=== PATIENT | female | born 1990 | race Caucasian/White ===

== ENCOUNTER 2019-08-18 15:43 | Emergency (ER) | payer SELFPAY ==
[2019-08-18 15:52] VITALS: BP 130/73; PULSE 109; RESP 18; TEMP 36.8; O2SAT 98; BMI 26.9
--- NOTE | 2019-08-18 16:12 | USR_ITS ---
PROCEDURE INFORMATION: Exam: US Pelvis Complete, Transabdominal Exam date and time: 08/18/2019 5:14 PM Age: 29 years old Clinical indication: Pelvic pain; Patient HX: Paragard iud inserted; Additional info: Pain/abnormal bleeding TECHNIQUE: Imaging protocol: Real-time transabdominal pelvic ultrasound with image documentation. Complete exam. COMPARISON: [place] [facility]etal[facility]/[place] [id number] 05/24/2016 3:35 PM FINDINGS: Uterus/cervix: The uterus measures 8.9 x 5.8 x 4.9 cm. IUD in standard position within the endometrial cavity. Endometrial thickness 7 mm. Right adnexa: The right ovary measures 6.0 x 4.7 x 4.1 cm with normal blood flow and a 5.2 cm simple cyst. Left adnexa: The left ovary measures 2.9 x 2.4 x 3.5 cm with normal flow and follicles. Free fluid: No free fluid. Bladder: Normal. US/US pelvic with transvaginal IMPRESSION: 1. 5.2 cm simple cyst in the right ovary. Recommend yearly follow-up. 2. IUD in the standard position.
--- NOTE | 2019-08-18 16:13 | W.ED.ABDPA2 ---
Documented by User: COLIN Sarmiento 08/19/19 07:45 HPI - Abdominal Pain General: Chief Complaint: Abdominal Pain Stated Complaint: ABD PAIN, SPOTTING Time Seen by Provider: 08/18/19 15:58 Source: patient Mode of arrival: ambulatory Limitations: no limitations History of Present Illness: HPI narrative: Patient is a 29-year-old female who presents to ED today with complaints of lower pelvic pain and abnormal bleeding; patient states her periods are normally regular but states she began bleeding 10 days early; she complains of pelvic cramping over the past week; she reports no chance of as she has a Paraguard IUD; she also has a complaint of severe fatigue and intermittent nausea; denies vaginal discharge, odor, new sexual partners, concern for STDs Onset (ago): day(s) Location: Pelvis Quality: cramping Radiation: none Migration to: no migration Exacerbating factors: nothing Relieving factors: nothing Associated Symptoms: Reports nausea; Denies chills, constipation, diarrhea, dysuria, fever(s), hematuria, hematemesis and vomiting Review of Systems Const: Reports: fatigue and daytime sleepiness; Denies: fever, chills, body aches, change in appetite or night sweats ENMT: Denies: painful swallowing Card: Denies: chest pain, palpitations, edema, lightheadedness or pre-syncope Resp: Denies: shortness of breath, productive cough or chest congestion GI: Reports: nausea; Denies: abdominal pain, vomiting, vomiting blood, difficulty swallowing, diarrhea or constipation : Reports: vaginal bleeding and pelvic pain; Denies: flank pain, difficulty urinating, painful urination, urinary frequency, urinary urgency, urinary hesitancy, blood in urine or vaginal odor Musc: Denies: neck pain, back pain, extremity pain, extremity swelling or joint pain Skin/Breast: Denies: rash PFSH ED PFSH: Statuses (acute, chronic, etc) shown below reflect problem list status as previously entered and may not be historically accurate Social History Smoking and tobacco status: never smoked Physical Exam Const: COMMON NORMALS: no apparent distress, average body habitus, oriented x3, no limitations, healthy appearing, alert and well nourished Resp: COMMON NORMALS: normal respiratory effort and clear to auscultation bilaterally AUSCULTATION: clear to auscultation bilaterally Cardio: COMMON NORMALS: regular rate and regular rhythm RATE: regular rate RHYTHM: regular rhythm GI: COMMON NORMALS: normal to inspection, nondistended, normoactive bowel sounds, soft to palpation, no hepatosplenomegaly and no masses PALPATION: Yes soft and Yes no hepatosplenomegaly OTHER: TTP across lower abdomen/pelvis : COMMON NORMALS: Yes no CVA tenderness BLADDER/KIDNEY EXAM: Yes no CVA tenderness Back/Pelvis: COMMON NORMALS: no CVA tenderness Neuro: COMMON NORMALS: oriented x3 SENSORIUM/ORIENTATION: Yes alert Skin: COMMON NORMALS: no rashes or lesions noted GENERAL SKIN EXAM: no rashes or lesions noted Course Vital Signs: Vital signs: Vital Signs Temperature 98.2 F 08/18/19 15:52 Pulse Rate 83 08/18/19 18:27 Respiratory Rate 17 08/18/19 18:27 Blood Pressure 162/62 08/18/19 18:27 Pulse Oximetry 94 08/18/19 18:27 MDM - Abdominal Pain Lab Data: Labs: Lab Results 08/18/19 08/18/19 08/18/19 Range/Units 16:06 16:06 16:06 WBC 7.9 (4.0-10.0) 10^3/ uL RBC 4.67 (4.1-5.3) 10^6/u L Hgb 13.0 (11.5-15.3) g/dL Hct 38.9 (37.0-47.0) % MCV 83.3 (81-99) fL MCH 27.8 L (28.0-34.0) pg MCHC 33.4 (30.0-36.0) g/dL RDW 12.1 (12.1-15.1) % Plt Count 377 (130-400) 10^3/c mm MPV 10.2 (7.4-10.4) fL Neut % (Auto) 64.0 % Lymph % (Auto) 27.1 % [place] % (Auto) 6.2 % Eos % (Auto) 1.9 % Baso % (Auto) 0.4 % Neut # (Auto) 5.1 (1.8-7.7) 10^3/u L Lymph # (Auto) 2.1 (0.8-4.8) 10^3/u L [place] # (Auto) 0.5 (0.2-0.9) 10^3/u L Eos # (Auto) 0.2 (0.0-0.8) 10^3/u L Baso # (Auto) 0.0 (0.0-0.1) 10^3/u L Nucleated RBC % (a uto) 0 % Nucleated RBCs # 0.0 /100WBC Sodium 138 (136-145) mmol/L Potassium 3.7 (3.5-5.1) mmol/L Chloride 101 (98-107) mmol/L Carbon Dioxide 21 L (22-29) mmol/L Anion Gap 19.7 H (5-19) BUN 12 (6-20) mg/dL Creatinine 0.5 (0.5-0.9) mg/dL GFR Calculation 148.0 H (90-130) mL/min Glucose 100 (74-109) mg/dL Calcium 9.7 (8.5-10.5) mg/dL Total Bilirubin 0.5 (0.15-1.2) mg/dL AST 17 (0-32) U/L ALT 14 (0-33) U/L Alkaline Phosphata se 75 (35-105) IU/L Total Protein 7.4 (6.6-8.7) g/dL Albumin 4.7 (3.5-5.2) g/dL Globulin 2.7 (1.3-4.6) g/dL TSH 0.01 L (0.27-4.20) uIU/ mL Free T4 (0.82-1.77) ng/d L Ser , Edwige i-Qnt 0.50 mIU/mL Urine Color (Yellow) Urine Appearance (CLEAR) Urine pH (5-7) Ur Specific Gravit y (1.005-1.030) Urine Protein (Negative) Urine Glucose (UA) (Normal) Urine Ketones (Negative) Urine Occult Blood (Negative) Urine Nitrate (Negative) Urine Bilirubin (NEGATIVE) Urine Urobilinogen (Negative) mg/dL Ur Leukocyte Abigail ase (Negative) Urine RBC (0-2) /hpf Urine WBC (0-5) /hpf Ur Squamous Epith Cells (0-5) Urine Bacteria (NONE) Urine Mucus 08/18/19 08/18/19 Range/Units 16:06 16:52 WBC (4.0-10.0) 10^3/ uL RBC (4.1-5.3) 10^6/u L Hgb (11.5-15.3) g/dL Hct (37.0-47.0) % MCV (81-99) fL MCH (28.0-34.0) pg MCHC (30.0-36.0) g/dL RDW (12.1-15.1) % Plt Count (130-400) 10^3/c mm MPV (7.4-10.4) fL Neut % (Auto) % Lymph % (Auto) % [place] % (Auto) % Eos % (Auto) % Baso % (Auto) % Neut # (Auto) (1.8-7.7) 10^3/u L Lymph # (Auto) (0.8-4.8) 10^3/u L [place] # (Auto) (0.2-0.9) 10^3/u L Eos # (Auto) (0.0-0.8) 10^3/u L Baso # (Auto) (0.0-0.1) 10^3/u L Nucleated RBC % (a uto) % Nucleated RBCs # /100WBC Sodium (136-145) mmol/L Potassium (3.5-5.1) mmol/L Chloride (98-107) mmol/L Carbon Dioxide (22-29) mmol/L Anion Gap (5-19) BUN (6-20) mg/dL Creatinine (0.5-0.9) mg/dL GFR Calculation (90-130) mL/min Glucose (74-109) mg/dL Calcium (8.5-10.5) mg/dL Total Bilirubin (0.15-1.2) mg/dL AST (0-32) U/L ALT (0-33) U/L Alkaline Phosphata se (35-105) IU/L Total Protein (6.6-8.7) g/dL Albumin (3.5-5.2) g/dL Globulin (1.3-4.6) g/dL TSH (0.27-4.20) uIU/ mL Free T4 2.87 H (0.82-1.77) ng/d L Ser , Edwige i-Qnt mIU/mL Urine Color Straw (Yellow) Urine Appearance Clear (CLEAR) Urine pH 5 (5-7) Ur Specific Gravit y 1.010 (1.005-1.030) Urine Protein Neg (Negative) Urine Glucose (UA) Norm (Normal) Urine Ketones Negative (Negative) Urine Occult Blood 3+ H (Negative) Urine Nitrate Negative (Negative) Urine Bilirubin Neg (NEGATIVE) Urine Urobilinogen Norm (Negative) mg/dL Ur Leukocyte Abigail ase Negative (Negative) Urine RBC 5-10 H (0-2) /hpf Urine WBC Rare (0-5) /hpf Ur Squamous Epith Cells 10-15 H (0-5) Urine Bacteria Trace (NONE) Urine Mucus 1+ Discharge Plan Discharge Patient Disposition: Home, Self-Care Clinical Impression: Ovarian cyst Qualifiers: Laterality: right Qualified Code(s): N83.201 - Unspecified ovarian cyst, right side Condition: Stable Prescriptions: New hydrocodone-acetaminophen 5-325 mg tablet 1 tab PO Q8H PRN (Reason: pain) Qty: 10 RF: 0 naproxen 500 mg tablet 500 mg PO Q12H PRN (Reason: pain) Qty: 20 RF: 0 Discharge Orders: Discharge Order (Routine); Ordered 08/18/19 Ordered By: Sai Pollock Referrals: Srikanth Brice DO [Family Provider] - Discharge Diet: Usual diet Discharge Activity: Increase activity as tolerated Patient Instructions: Ovarian Cyst (ED) Activity Restrictions/Additional Instructions: Drink plenty of water with medications Activity as tolerated Healthy diet and exercise Use medications as directed Follow-up with primary care for further management Case management will contact you regarding referral to [facility] as needed for further assistance Discharge Date/Time: 08/18/19 18:27 Coding Level of Care Code ED Delivery Truck Driver for Chg Fwd Exam Problem Focused Documented by User: MEREDITH Mendez 08/18/19 18:12 HPI - Abdominal Pain General: Chief Complaint: Abdominal Pain Stated Complaint: ABD PAIN, SPOTTING Time Seen by Provider: 08/18/19 15:58 PFSH ED PFSH: Statuses (acute, chronic, etc) shown below reflect problem list status as previously entered and may not be historically accurate Social History Smoking and tobacco status: never smoked Course ED course: received patient from Denise Mckenzie PA-C, awaiting US results. [email or web address] Vital Signs: Vital signs: Vital Signs Temperature 98.2 F 08/18/19 15:52 Pulse Rate 83 08/18/19 18:27 Respiratory Rate 17 08/18/19 18:27 Blood Pressure 162/62 08/18/19 18:27 Pulse Oximetry 94 08/18/19 18:27 MDM - Abdominal Pain MDM Narrative: Medical decision making narrative: Patient comes in today with complaints of irregular periods and right lower abdominal pain. Patient has IUD. Patient has no change in partners. Patient appears well. Patient appears in moderate pain. Exam noted some lower right quadrant abdominal tenderness. Differential diagnosis included displaced IUD, PID, ovarian cyst, appendicitis, gastroenteritis, malingering. Laboratory values noted decrease of the TSH at 0.1 with the remainder of the labs being normal or insignificant. Urinalysis had some blood but no white blood cells or significant skin cells. Ultrasound noted a right ovarian cyst with recommendations for follow-up. Reviewed exam with patient with recommendations for follow-up with primary care or SPANISH INTERPRETER/TRANSLATOR of choice. Patient reports understanding and agreed to plan. Patient was treated for pain with hydrocodone and recommended to use naproxen routinely otherwise for her pain and discomfort. Lab Data: Labs: Lab Results 08/18/19 08/18/19 08/18/19 Range/Units 16:06 16:06 16:06 WBC 7.9 (4.0-10.0) 10^3/ uL RBC 4.67 (4.1-5.3) 10^6/u L Hgb 13.0 (11.5-15.3) g/dL Hct 38.9 (37.0-47.0) % MCV 83.3 (81-99) fL MCH 27.8 L (28.0-34.0) pg MCHC 33.4 (30.0-36.0) g/dL RDW 12.1 (12.1-15.1) % Plt Count 377 (130-400) 10^3/c mm MPV 10.2 (7.4-10.4) fL Neut % (Auto) 64.0 % Lymph % (Auto) 27.1 % [place] % (Auto) 6.2 % Eos % (Auto) 1.9 % Baso % (Auto) 0.4 % Neut # (Auto) 5.1 (1.8-7.7) 10^3/u L Lymph # (Auto) 2.1 (0.8-4.8) 10^3/u L [place] # (Auto) 0.5 (0.2-0.9) 10^3/u L Eos # (Auto) 0.2 (0.0-0.8) 10^3/u L Baso # (Auto) 0.0 (0.0-0.1) 10^3/u L Nucleated RBC % (a uto) 0 % Nucleated RBCs # 0.0 /100WBC Sodium 138 (136-145) mmol/L Potassium 3.7 (3.5-5.1) mmol/L Chloride 101 (98-107) mmol/L Carbon Dioxide 21 L (22-29) mmol/L Anion Gap 19.7 H (5-19) BUN 12 (6-20) mg/dL Creatinine 0.5 (0.5-0.9) mg/dL GFR Calculation 148.0 H (90-130) mL/min Glucose 100 (74-109) mg/dL Calcium 9.7 (8.5-10.5) mg/dL Total Bilirubin 0.5 (0.15-1.2) mg/dL AST 17 (0-32) U/L ALT 14 (0-33) U/L Alkaline Phosphata se 75 (35-105) IU/L Total Protein 7.4 (6.6-8.7) g/dL Albumin 4.7 (3.5-5.2) g/dL Globulin 2.7 (1.3-4.6) g/dL TSH 0.01 L (0.27-4.20) uIU/ mL Free T4 (0.82-1.77) ng/d L Ser , Edwige i-Qnt 0.50 mIU/mL Urine Color (Yellow) Urine Appearance (CLEAR) Urine pH (5-7) Ur Specific Gravit y (1.005-1.030) Urine Protein (Negative) Urine Glucose (UA) (Normal) Urine Ketones (Negative) Urine Occult Blood (Negative) Urine Nitrate (Negative) Urine Bilirubin (NEGATIVE) Urine Urobilinogen (Negative) mg/dL Ur Leukocyte Abigail ase (Negative) Urine RBC (0-2) /hpf Urine WBC (0-5) /hpf Ur Squamous Epith Cells (0-5) Urine Bacteria (NONE) Urine Mucus 08/18/19 08/18/19 Range/Units 16:06 16:52 WBC (4.0-10.0) 10^3/ uL RBC (4.1-5.3) 10^6/u L Hgb (11.5-15.3) g/dL Hct (37.0-47.0) % MCV (81-99) fL MCH (28.0-34.0) pg MCHC (30.0-36.0) g/dL RDW (12.1-15.1) % Plt Count (130-400) 10^3/c mm MPV (7.4-10.4) fL Neut % (Auto) % Lymph % (Auto) % [place] % (Auto) % Eos % (Auto) % Baso % (Auto) % Neut # (Auto) (1.8-7.7) 10^3/u L Lymph # (Auto) (0.8-4.8) 10^3/u L [place] # (Auto) (0.2-0.9) 10^3/u L Eos # (Auto) (0.0-0.8) 10^3/u L Baso # (Auto) (0.0-0.1) 10^3/u L Nucleated RBC % (a uto) % Nucleated RBCs # /100WBC Sodium (136-145) mmol/L Potassium (3.5-5.1) mmol/L Chloride (98-107) mmol/L Carbon Dioxide (22-29) mmol/L Anion Gap (5-19) BUN (6-20) mg/dL Creatinine (0.5-0.9) mg/dL GFR Calculation (90-130) mL/min Glucose (74-109) mg/dL Calcium (8.5-10.5) mg/dL Total Bilirubin (0.15-1.2) mg/dL AST (0-32) U/L ALT (0-33) U/L Alkaline Phosphata se (35-105) IU/L Total Protein (6.6-8.7) g/dL Albumin (3.5-5.2) g/dL Globulin (1.3-4.6) g/dL TSH (0.27-4.20) uIU/ mL Free T4 2.87 H (0.82-1.77) ng/d L Ser , Edwige i-Qnt mIU/mL Urine Color Straw (Yellow) Urine Appearance Clear (CLEAR) Urine pH 5 (5-7) Ur Specific Gravit y 1.010 (1.005-1.030) Urine Protein Neg (Negative) Urine Glucose (UA) Norm (Normal) Urine Ketones Negative (Negative) Urine Occult Blood 3+ H (Negative) Urine Nitrate Negative (Negative) Urine Bilirubin Neg (NEGATIVE) Urine Urobilinogen Norm (Negative) mg/dL Ur Leukocyte Abigail ase Negative (Negative) Urine RBC 5-10 H (0-2) /hpf Urine WBC Rare (0-5) /hpf Ur Squamous Epith Cells 10-15 H (0-5) Urine Bacteria Trace (NONE) Urine Mucus 1+ Discharge Plan Discharge Patient Disposition: Home, Self-Care Clinical Impression: Ovarian cyst Qualifiers: Laterality: right Qualified Code(s): N83.201 - Unspecified ovarian cyst, right side Condition: Stable Prescriptions: New hydrocodone-acetaminophen 5-325 mg tablet 1 tab PO Q8H PRN (Reason: pain) Qty: 10 RF: 0 naproxen 500 mg tablet 500 mg PO Q12H PRN (Reason: pain) Qty: 20 RF: 0 Discharge Orders: Discharge Order (Routine); Ordered 08/18/19 Ordered By: Sai Pollock Referrals: Srikanth Brice DO [Family Provider] - Discharge Diet: Usual diet Discharge Activity: Increase activity as tolerated Patient Instructions: Ovarian Cyst (ED) Activity Restrictions/Additional Instructions: Drink plenty of water with medications Activity as tolerated Healthy diet and exercise Use medications as directed Follow-up with primary care for further management Case management will contact you regarding referral to OB[facility] as needed for further assistance Discharge Date/Time: 08/18/19 18:27 Coding Level of Care Code ED Delivery Truck Driver for Chg Fwd Exam Problem Focused
[2019-08-18 16:20] VITALS: BP 115/78; PULSE 107; RESP 17; O2SAT 97
[2019-08-18 16:22] LABS: Basophils % 0.4 %; Eosinophils # 0.2 10^3/uL (0.0-0.8); Eosinophils % 1.9 %; Hematocrit 38.9 % (37.0-47.0); Lymphocytes # 2.1 10^3/uL (0.8-4.8); Lymphocytes % 27.1 %; Mean Corpuscular HGB Conc 33.4 g/dL (30.0-36.0); Mean Corpuscular Hemoglobin 27.8 pg (28.0-34.0); Mean Corpuscular Volume 83.3 fL (81-99); Mean Platelet Volume 10.2 fL (7.4-10.4); Monocytes # 0.5 10^3/uL (0.2-0.9); Monocytes % 6.2 %; Neutrophils # 5.1 10^3/uL (1.8-7.7); Nucleated Red Blood Cells % 0 %; Platelet Count 377 10^3/cmm (130-400); Red Blood Count 4.67 10^6/uL (4.1-5.3); Red Cell Distribution Width 12.1 % (12.1-15.1); White Blood Count 7.9 10^3/uL (4.0-10.0)
[2019-08-18 16:33] VITALS: BP 102/71; PULSE 108; RESP 18; O2SAT 98
[2019-08-18 16:52] LABS: Alanine Aminotransferase 14 U/L (0-33); Albumin Level 4.7 g/dL (3.5-5.2); Alkaline Phosphatase 75 IU/L (35-105); Anion Gap 19.7 (5-19); Aspartate Amino Transferase 17 U/L (0-32); Blood Urea Nitrogen 12 mg/dL (6-20); Calcium 9.7 mg/dL (8.5-10.5); Carbon Dioxide 21 mmol/L (22-29); Chloride 101 mmol/L (98-107); Globulin 2.7 g/dL (1.3-4.6); Glucose 100 mg/dL (74-109); Potassium 3.7 mmol/L (3.5-5.1); Sodium 138 mmol/L (136-145); Thyroid Stimulating Hormone 0.01 uIU/mL (0.27-4.20); Total Bilirubin 0.5 mg/dL (0.15-1.2); Total Protein 7.4 g/dL (6.6-8.7)
[2019-08-18 16:54] VITALS: BP 102/71; PULSE 82; RESP 18; O2SAT 99
[2019-08-18 17:11] LABS: Bilirubin Urine Neg (NEGATIVE); Blood Urine 3+ (Negative); Glucose Urine UA Norm (Normal); Ketones Urine Negative (Negative); Nitrate Urine Negative (Negative); Protein Urine Neg (Negative); Urine Appearance Clear (CLEAR); Urine Color Straw (Yellow); Urobilinogen Urine Norm (Negative); pH Urine 5 (5-7)
[2019-08-18 17:12] LABS: Add Urine Microscopic? YES; Leukocyte Esterase Urine Negative (Negative)
[2019-08-18 17:17] LABS: Add Urine Culture? No; Bacteria Urine TRACE; Mucus Urine 1+; WBC Urine RARE /hpf (0-5)
[2019-08-18 18:02] LABS: Free T4 Free Thyroxine 2.87 ng/dL (0.82-1.77)
[2019-08-18] MEDS: HYDROcodone-acetaminophen 7.5-325 mg Tablet 1 TAB PO (18:23)
[2019-08-18 18:27] VITALS: BP 162/62; PULSE 83; RESP 17; O2SAT 94
--- NOTE | 2019-08-20 15:40 | DCPLANNER ---
Addendum entered by Josefina Johnson 09/03/19 14:28: logistics project manager spoke with Shauna at [facility], was told that after speaking with patient to give her appointment information, patient stated that she did not want an appointment scheduled at this time. Patient stated that she has seen her primary care physician. Original Note: logistics project manager had message to schedule a follow up appointment for patient with [facility]. logistics project manager called [facility], spoke with Shauna, gave clinic patients information. logistics project manager was told that patients information would be printed off and reviewed. Clinic will call binder caser and patient with appointment information.
== END 2019-08-18 18:27 | disposition home or self-care (01) ==
PROVIDERS: Emergency Medicine; Nurse Practitioner Family; Emergency Provider Physician Assistant; Family Provider Family Medicine
DX: N83.201 Unspecified ovarian cyst, right side (principal)
CPT/HCPCS: 36415; 76830; 76856; 80053; 81001; 84439; 84443; 84702; 85025; 99282; 99283

== ENCOUNTER → 2020-06-15 10:40 | Outpatient (BNVA) | payer OTHER, SELFPAY | PROVIDERS: Family Provider Family Medicine; Visit Provider Nurse Practitioner Family | DX: Z11.59 Encounter for screening for other viral diseases (principal) | CPT/HCPCS: 87426 ==

== ENCOUNTER 2020-09-30 07:38 | Outpatient (CLI) | payer OTHER, SELFPAY ==
--- NOTE | 2020-09-30 07:42 | US_ITS ---
WS: [id number] TRANSABDOMINAL FIRST TRIMESTER ULTRASOUND REASON FOR EXAM: NORMAL SUPERVISION,MULTIPAROUS : 3 PARA: 2 COMPARISON: None available. FINDINGS: Cervical length is 3.3 cm; closed. Single live intrauterine . Normal placentation with no hemorrhage. [place] rump length measuring 2.0 cm. EGA 8 weeks 4 days. cardiac tones 189 BPM. Estimated date of delivery 05/08/2021. No free fluid in the cul-de-sac. Right ovary measures 6.0 cm x 6.3 cm x 5.0 cm. Normal blood flow and a large cyst that measures 5.13 x 4.96 x 3.97 cm. Left ovary measures 2.3 cm x 3.9 cm x 2.9 cm. Normal blood flow. No mass. US/US OB <= 14 weeks fetus [id number] IMPRESSION: Viable single intrauterine EGA 8 weeks 4 days
== END 2020-09-30 07:39 | disposition home or self-care (01) ==
LOC: RAD 07:39
PROVIDERS: PCP Family Medicine; Visit Provider Family Medicine
DX: Z34.81 Encounter for supervision of other normal pregnancy, first trimester; Z3A.08 8 weeks gestation of pregnancy
CPT/HCPCS: 76801

== ENCOUNTER 2020-12-16 09:14 | Outpatient (CLI) | payer OTHER, MEDICAID, SELFPAY ==
--- NOTE | 2020-12-16 09:31 | US_ITS ---
WS: [id number] ULTRASOUND OB COMPLETE TECHNIQUE: Complete ultrasound. CLINICAL INFORMATION: ANATOMY COMPARISON: Ultrasound September 30, 2020 FINDINGS: Cervix measures 4.1 cm Single interuterine gestation is identified with breech presentation. Placenta is anterior. Placenta grade 0. Normal amniotic fluid volume. cardiac activity: BPM. BLAINE 11.6 cm Simple right adnexal cyst measuring 5.2 x 5.3 x 4.4 cm AGA: 19w6d CADEN by ultrasound: 05/06/2021 Estimated weight: 334 g BDP: 4.4 cm = 19w1d HC: 17.6 cm = 20w1d AC: 15.3 cm = 20w3d FEMUR LENGTH: 3.2 cm = 19w6d Anatomic survey: profile not well seen. Anatomic survey is otherwise normal. Normal stomach. Kidneys and bladder are normal. Normal 3 vessel cord. Normal 3 vessel cord insertion. Normal 4 chamber heart. Normal spine. Intracranial contents are normal. Normal posterior fossa and cisterna magna. US/US OB >= 14 weeks fetus [id number] IMPRESSION: 1. Single intrauterine with visualized cardiac activity. AGA 19w6d w ith CADEN 05/06/2021. 2. Placenta is anterior. No evidence of abruption or previa. 3. profile not well visualized. anatomic survey is otherwise tiff l. 4. Normal amniotic fluid volume. 5. Cervix is long and closed. 6. Simple right adnexal cyst measuring 5.2 x 5.3 x 4.4 cm. This is similar to the prior examination.
== END 2020-12-16 09:15 | disposition home or self-care (01) ==
LOC: RAD 09:17
PROVIDERS: PCP Family Medicine; Visit Provider Family Medicine
DX: Z36.89 Encounter for other specified antenatal screening (principal); Z3A.19 19 weeks gestation of pregnancy; N83.201 Unspecified ovarian cyst, right side
CPT/HCPCS: 76805

== ENCOUNTER 2021-02-26 09:44 | Outpatient (CLI) | payer OTHER, MEDICAID, SELFPAY ==
--- NOTE | 2021-02-26 09:51 | US_ITS ---
WS: [id number] Ultrasound OB, limited. COMPARISON: 12/16/2020. COMPARISON: 12/16/2020. Cervix is closed at 4.0 cm. Heart rate was not obtained by M-mode. In real-time heart rate was normal . Amniotic fluid index: 13.8 cm which is normal. Placenta is anterior grade 1. No previa or abruption. RIGHT adnexal cyst is again identified. This measures 4.7 x 5.5 x 5.0 cm. No significant increase in size since the prior study. [place] [id number] IMPRESSION: 1. Normal amniotic fluid index at 13.8 cm. 2. Large RIGHT adnexal cyst is unchanged.
== END 2021-02-26 09:45 | disposition home or self-care (01) ==
LOC: RAD 09:48
PROVIDERS: PCP Family Medicine; Visit Provider Family Medicine
DX: O41.03X0 Oligohydramnios, third trimester, not applicable or unspecified (principal)
CPT/HCPCS: 76816

== ENCOUNTER 2021-03-23 09:55 | Outpatient (CLI) | payer OTHER, MEDICAID, SELFPAY ==
--- NOTE | 2021-03-23 10:12 | US_ITS ---
WS: [id number] ULTRASOUND OB LIMITED TECHNIQUE: Limited ultrasound examination of the fetus. CLINICAL INFORMATION: BLAINE/EFW COMPARISON: February 26, 2021 FINDINGS: Cervix is long and closed measuring 4.3 cm. Single interuterine gestation. presentation is vertex Placental location is anterior. Placenta grade: 1 heart rate 141 BPM. Simple right adnexal cyst measuring 4.9 x 4.7 x 4.6 cm Anatomy: BDP: 8.5 cm = 34w2d HC: 31.6 cm = 35w3d AC: 30.2 cm = 34w1d FEMUR LENGTH: 6.6 cm = 34w0d Estimated weight: 2388 g EGA by ultrasound: 34w3d CADEN by ultrasound: 05/01/2021 US[place] [id number] IMPRESSION: 1. Cervix is long and closed measuring 4.3 cm. 2. BLAINE 12.5 CM greater than the 5th percentile and less than the median for ge stational age 3. presentation is vertex with anterior placenta. 4. Simple right adnexal cyst measuring 4.9 x 4.7 x 4.6 cm
== END 2021-03-23 09:56 | disposition home or self-care (01) ==
LOC: RAD 09:59
PROVIDERS: PCP Family Medicine; Visit Provider Family Medicine
DX: Z36.4 Encounter for antenatal screening for fetal growth retardation (principal)
CPT/HCPCS: 76816

== ENCOUNTER → 2021-04-21 13:30 | Outpatient (BNVA) | payer OTHER, MEDICAID, SELFPAY | PROVIDERS: PCP Family Medicine; Visit Provider Obstetrics & Gynecology | DX: Z30.8 Encounter for other contraceptive management (principal) | CPT/HCPCS: 87635 ==

== ENCOUNTER 2021-04-26 10:42 | Outpatient (CLI) | payer OTHER, MEDICAID, SELFPAY ==
--- NOTE | 2021-04-26 10:53 | US_ITS ---
WS: [id number] LIMITED OBSTETRICAL ULTRASOUND HISTORY: 3RD TRIMESTER OLIGOHYDRAMNIOS. COMPARISON: 09/30/2020, 12/16/2020 and 03/23/2021 Presentation: Vertex. Cervix: Closed and normal length. Placenta: Anterior, no previa or abruption. Grade: 2 HEART: FHR of 138 BPM. measurements: BPD = 9.4 cm = 38w2d HC = 33.4 cm = 38w1d AC = 34.4 cm = 38w2d FL = 7.5 cm = 38w2d BLAINE: 12.2 cm EFW: 3437 g; 82 %. AGA by ultrasound: 38w2d CADEN by ultrasound: 05/08/2021 Appropriate growth of fetus since the first trimester ultrasound. Biometry percentiles are within nor mal range. US/[place] [id number] IMPRESSION: 1. Single intrauterine gestation of 38 weeks 2 days with an EDC of 05/08/2021. Appropriate growth of the fetus. No growth asymmetry. 2. Normal amniotic fluid index. Index between the fifth and 50th percentiles.
== END 2021-04-26 10:43 | disposition home or self-care (01) ==
LOC: RAD 10:45
PROVIDERS: PCP Family Medicine; Visit Provider Family Medicine
DX: O41.03X0 Oligohydramnios, third trimester, not applicable or unspecified (principal); Z3A.38 38 weeks gestation of pregnancy
CPT/HCPCS: 76816

== ENCOUNTER 2021-05-02 18:02 | Inpatient (IN) | payer OTHER, MEDICAID, SELFPAY ==
[2021-05-02] VITALS (23 sets, daily range): BP systolic 104–123; BP diastolic 56–75; PULSE 66–85; RESP 16–17; TEMP 36.2–36.4; BMI 29.4
[2021-05-02] MEDS: miSOPROStol 100 mcg tablet 25 MCG VAGINAL (18:39)
[2021-05-02 18:43] LABS: Basophils % 0.3 %; Eosinophils # 0.1 10^3/uL (0.0-0.8); Eosinophils % 0.9 %; Hematocrit 29.8 % (37.0-47.0); Hemoglobin 9.7 g/dL (11.5-15.3); Lymphocytes # 1.9 10^3/uL (0.8-4.8); Lymphocytes % 18.8 %; Mean Corpuscular HGB Conc 32.6 g/dL (30.0-36.0); Mean Corpuscular Hemoglobin 24.1 pg (28.0-34.0); Mean Corpuscular Volume 73.9 fl (81-99); Mean Platelet Volume 10.1 fL (7.4-10.4); Monocytes # 0.7 10^3/uL (0.2-0.9); Monocytes % 6.6 %; Neutrophils # 7.39 10^3/uL (1.8-7.7); Neutrophils % 72.9 %; Nucleated Red Blood Cells % 0 %; Platelet Count 352 10^3/cmm (130-400); Red Blood Count 4.03 10^6/uL (4.1-5.3); Red Cell Distribution Width 14.7 % (12.1-15.1); White Blood Count 10.1 10^3/uL (4.0-10.0)
[2021-05-02] MEDS: dextrose 5%-lactated ringers 1,000 ML 125 ML IV (21:08)
[2021-05-02] MEDS: lactated ringers 1,000 ML 999 ML IV (21:55)
[2021-05-03] VITALS (118 sets, daily range): BP systolic 87–131; BP diastolic 49–78; PULSE 51–129; RESP 14–20; TEMP 35.8–37; O2SAT 86–100
[2021-05-03] MEDS: lactated ringers 1,000 ML 999 ML IV (03:01)
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
[2021-05-03] MEDS: ondansetron 2 mg/ML SDV 2 mL 4 MG IVP (05:02)
--- NOTE | 2021-05-03 05:33 | ANES.PROC ---
Anesthesia Procedures Procedure/Date: 05/03/21 Epidural: Time Out Performed: Yes Consents Signed: Procedure Consent Consent: requested by attending/covering physician, from patient, risks and benefits reviewed and patient agrees to proceed Lumbar Level: L3-L4 Epidural position: sitting Epidural procedure: sterile prep of area (betadine), 1% lidocaine to numb the area, 18 g needle, neg for paresthesia, test dose given, 1.5% xylocaine 1:200k epi (5ml), 0.2% Ropivacaine bolus ml (5ml), placed PCEA, no systemic response, sterile dressing applied, L.U.D. no apparent complications and 0.2% Ropiavacaine @ mls/hr (10ml/hr)
--- NOTE | 2021-05-03 07:37 | P.HP_ITS ---
Providers/Chief Complaint Admitting Physician: Mohinder Howell MD Primary Care Provider: Srikanth Brice DO Chief Complaint: Induction of Labor History of Present Illness Sabrina Guillaume is a 31 year old at 39.1 weeks gestation by 8-week ultrasound inconsistent with LMP. Her is complicated by hypothyroidism, cystic fibrosis carrier, anemia, poor maternal weight gain, history of hemorrhage, rubella nonimmune. Patient presented to labor delivery triage on 05/02/2021 for a scheduled elective induction. The patient denies any chest pains, shortness of breath, fever, diarrhea, constipation, dysuria, vaginal bleeding, leakage of fluid. The patient has had some nausea throughout . Medications/Allergies Home Medications Medication Instructions Recorded Confirmed Last Taken Type docosahexaenoic acid 200 mg capsule mg PO 04/15/21 04/15/21 Unknown History levothyroxine 175 mcg tablet 200 mcg PO DAILY tab 04/15/21 04/15/21 Unknown History Allergies Allergy/AdvReac Type Severity Reaction Status Date / Time doxycycline Allergy throat Verified 04/21/21 13:58 swelling PFSH Acute PFSH: Medical History (Updated 05/03/21 @ 07:46 by Mohinder Howell MD) History of hemorrhage Hypothyroidism Surgical History History of cholecystectomy Family History Father Chronic kidney disease (CKD) Diabetes Hypertension Grandfather Hypertension Paternal Chronic kidney disease (CKD) Paternal Grandmother Thyroid disease Maternal Denies family history of CAD (coronary artery disease) Clotting disorder Hyperlipidemia Bleeding disorder Cancer Stroke Social History Smoking and tobacco status: never smoked Second hand smoke exposure: No Alcohol intake: never Desire information about alcohol rehabilitation?: No Desire information about substance/drug rehabilitation?: No Female Reproductive History: : 3 Vitals/I&O/Wt Last Vital Signs Temp 97.2 F L 05/03/21 04:20 Pulse 68 05/03/21 07:31 Resp 16 05/03/21 06:30 BP 91/57 05/03/21 07:25 Pulse Ox 100 05/03/21 07:31 05/02/21 05/03/21 05/03/21 22:59 06:59 14:59 Intake Total 1097.917 / 5371.088 3366.667 / 2264.584 Balance 1097.917 / 7676.424 0932.667 / 2264.584 Weight last 48 hrs Weight 177 lb Physical Exam Narrative: EXAM NARRATIVE: General: Alert and oriented x3 Eyes: Pupils equal round and reactive to light and accommodation Mouth: Mucous membranes moist, pharynx non-erythematous Cardiac: Regular rate and rhythm without murmurs Lungs: Clear to auscultation bilaterally without wheezes, crackles or rhonchi Abdomen: Soft, non-tender, fundus small for gestational age Extremities: Trace edema in the bilateral lower extremities Urinary Catheter Management^: Blake Latex: Cath Placed During This Visit: yes Reason for Continuing Indwelling Catheter: Required Immobilization for Trauma or Surgery or Anesthesia Urinary Catheter Date of Insertion: 05/03/21 Urinary Catheter Time of Insertion: 06:07 Data : 05/02/21 18:20 A&P Assessment and plan (1) Rubella non-immune status, antepartum: Status: Acute (2) Anemia: Status: Acute (3) Intrauterine : Status: Acute Additional A&P Information The patient was given 1 dose of Cytotec on the evening of 05/02/2021. With that 1 dose she has changed from 1 cm dilation to 5 cm dilation. Currently she is 5/70/-2/posterior. Her contractions are every 5 to 6 minutes. She is comfortable with an epidural. We will add IV Pitocin to augment the labor process. The patient is GBS negative. She is Covid negative. Currently she has a category 1 heart tone tracing. With her history of hemorrhage, we will have medications ready immediately after delivery. All questions were answered. Continue with induction of labor. Attestations Medical Necessity Statement*: The patient will be here for greater than 2 midnights due to routine intrapartum and management of labor and delivery. Coding Level of Care Code Acute Title One Reading Teacher for Chg Fwd Diagnoses Rubella non-immune status, antepartum O99.891; Z28.3 Anemia D64.9 Intrauterine Z34.90
[2021-05-03] MEDS: oxytocin 30 UNIT/500 ML BAG IV (07:45)
[2021-05-03] MEDS: dextrose 5%-lactated ringers 1,000 ML 125 ML IV (09:16)
[2021-05-03] MEDS: oxytocin 30 UNIT/500 ML BAG 600 UNIT IV (10:17)
--- NOTE | 2021-05-03 10:32 | PM.DELIVERY ---
Delivery Note: Date of delivery: May 03, 2021 Pre-delivery diagnoses: 1. Intrauterine at 39.1 weeks gestation 2. Hypothyroidism 3. Cystic fibrosis carrier 4. Anemia 5. Poor maternal weight gain 6. Rubella nonimmune 7. History of hemorrhage x2 Post-delivery diagnoses: 1. Intrauterine status post spontaneous vaginal delivery at 39.1 weeks gestation 2. Hypothyroidism 3. Cystic fibrosis carrier 4. Anemia 5. Poor maternal weight gain 6. Rubella nonimmune 7. History of hemorrhage x2 8. Delivery of healthy infant female weighing 7 pounds 6 ounces with Apgars of 9 and 9 Procedure: Spontaneous vaginal delivery Op report anesthesia: Epidural Delivering Physician: Mohinder Howell MD Estimated blood loss (mL): 125 Findings: 1. Delivery of healthy infant female weighing 7 pounds 6 ounces with Apgars of 9 and 9 2. Intact placenta with peripheral umbilical cord insertion site Pre-Delivery Course: The patient presented to labor and delivery triage for an induction of labor on 05/02/2021. She received 1 dose of Cytotec that evening and from there had regular contractions. The patient made gradual change and by the following morning was 5 cm dilated. She was started on IV Pitocin for augmentation of labor. The patient then made steady change and was complete by 10:02 AM on 05/03/2021. Delivery: The patient began pushing at 10:10 AM on 05/03/2021. The infant delivered rapidly at 10:11 AM on 05/03/2021. The delivered in the OA position. The left shoulder was the anterior shoulder and it delivered with ease. Rest of the infant delivered with ease. The was crying immediately after delivery. The 's mouth and nose were bulb suctioned by myself. The was placed on the mother's chest where the nurses were waiting to care for her. The cord was clamped by myself after approximately 1 minute. The cord was cut by the 's father. Cord blood was then obtained. The cord was drained of blood and traction was placed. The placenta was massaged by myself. The placenta delivered without complication at 10:15 AM on 05/03/2021. The placenta was noted to be intact with a peripheral umbilical cord insertion site. IV Pitocin was bolused and TXA was given secondary to her history of hemorrhage x2. The patient's uterus was soft initially but firmed up well. The uterus is now firm and midline and mobile of the umbilicus. The cervix was inspected and no lacerations were noted. Vaginal wall was inspected and a mild abrasion was noted in the periurethral and perineal region. These did not need suturing. Estimated blood loss was 125 mL. Currently both the mother and are doing well. A&P Assessment and plan (1) Rubella non-immune status, antepartum: Status: Acute (2) Anemia: Status: Acute (3) Intrauterine : Status: Acute Coding Level of Care Code Acute Telephone Clerk [employer] for Chg Fwd Diagnoses Rubella non-immune status, antepartum O99.891; Z28.3 Anemia D64.9 Intrauterine Z34.90
--- NOTE | 2021-05-03 12:55 | PC.NURSE ---
PT UP TO BATHROOM AND THEN AMBULATED TO OB 7, DOING VERY WELL. ORIENTED TO ROOM, CALL LIGHT SYSTEM, PP PACK, ETC.
--- NOTE | 2021-05-03 13:26 | ANE.PACU2 ---
Inpatient post-anesthesia follow up: Airway intact: Yes Vital signs: Temperature 96.4 F Pulse Rate 91 Respiratory Rate 16 Blood Pressure 124/58 Pulse Oximetry 100 Oxygen Delivery Me thod Room Air Oxygen Flow Rate Fraction of Inspir ed Oxygen Hydration adequate: Yes Nausea and vomiting: No Pain level: 2 Mental status: Baseline
--- NOTE | 2021-05-03 16:23 | PM.OBGYCN ---
Providers/Reason for Consult Consulting Physican/Specialty*: GRADING MACHINE OPERATOR Reason for Consult*: Desire permanent sterility desire permanent sterilization Attending Physician: Mhoinder Howell MD Primary Care Provider: Srikanth Brice DO GRADING MACHINE OPERATOR Consult HPI History of Present Illness Sabrina Guillaume is a 31 year old female -0-032 patient with an LMP of 08/02/20, status post spontaneous vaginal delivery desires permanent sterilization. She had previously been seen in our clinic for sterilization consult, she was to proceed with the planned tubal ligation. Present Details : 3 Para: 2 Review of Systems General: Reports: 10 or more systems reviewed and unremarkable except in HPI and below Const: Denies: fever(s) or chills ENMT: Denies: throat pain Card: Denies: chest pain Resp: Denies: dyspnea, productive cough or non-productive cough GI: Denies: abdominal pain : Reports: vaginal bleeding (); Denies: flank pain, difficulty voiding, dysuria, urinary frequency, urinary urgency, urinary incontinence, genital lesions, genital pruritis, vaginal dryness, vaginal odor, vaginal discharge, dysmenorrhea, irregular period, metrorrhagia, amenorrhea, pelvic pain, prolapse symptoms or dyspareunia Meds/Allergies Home Medications and Allergies Home Medications Medication Instructions Recorded Confirmed Last Taken Type docosahexaenoic acid 200 mg capsule mg PO 04/15/21 04/15/21 Unknown History levothyroxine 175 mcg tablet 200 mcg PO DAILY tab 04/15/21 04/15/21 Unknown History Allergies Allergy/AdvReac Type Severity Reaction Status Date / Time doxycycline Allergy throat Verified 04/21/21 13:58 swelling Current Medications Current Medications Generic Name Dose Route Start Last Admin Trade Name Freq PRN Reason Stop Dose Admin Oxytocin 30 unit in 500 mls @ 600 mls/hr 05/02/21 18:14 05/03/21 10:17 Pitocin IV 600 mls/hr .Q50M PRN Administration After delivery of infant Protocol Lactated Ringer's 1,000 mls @ 999 mls/hr 05/02/21 18:14 05/02/21 22:56 Lactated Ringers IV Infused .Q1H1M PRN Infusion Per L&D Rescitation Protocol Tranexamic Acid 1,000 mg/ 110 mls @ 330 mls/hr 05/02/21 18:14 05/03/21 10:16 Sodium Chloride IV 330 mls/hr Q30M PRN Administration BLEEDING Dextrose/Lactated Ringer's 1,000 mls @ 125 mls/hr 05/02/21 18:15 05/03/21 09:16 Dextrose 5%-Lactated Ringers IV 125 mls/hr .Q8H JOSE Administration Lactated Ringer's 1,000 mls @ 999 mls/hr 05/02/21 22:43 05/03/21 04:21 Lactated Ringers IV Infused .Q1H1M PRN Infusion See label comments Oxytocin 30 unit in 500 mls @ 1 mls/hr 05/03/21 07:45 05/03/21 09:15 Pitocin IV 8 milliunit/min .Q24H JOSE 8 mls/hr Titration Protocol 1 MILLIUNIT/MIN Ibuprofen 800 mg 05/03/21 15:00 05/03/21 15:59 Ibuprofen 800 Mg Tablet PO Not Given TID JOSE Ondansetron HCl 4 mg 05/02/21 18:14 05/03/21 05:02 Ondansetron 2 Mg/Ml Sdv 2 Ml IVP 4 mg Q4H PRN Administration NAUSEA AND VOMITING PFSH GRADING MACHINE OPERATOR PFSH: Medical History (Updated 05/03/21 @ 16:27 by Vladimir Vázquez MD) History of hemorrhage Hypothyroidism Surgical History History of cholecystectomy Family History Father Chronic kidney disease (CKD) Diabetes Hypertension Grandfather Hypertension Paternal Chronic kidney disease (CKD) Paternal Grandmother Thyroid disease Maternal Denies family history of CAD (coronary artery disease) Clotting disorder Hyperlipidemia Bleeding disorder Cancer Stroke Social History Smoking and tobacco status: never smoked Second hand smoke exposure: No Alcohol intake: never Desire information about alcohol rehabilitation?: No Desire information about substance/drug rehabilitation?: No Vitals/I&O/Wt Last Vital Signs Temp 98.6 F 05/03/21 16:00 Pulse 73 05/03/21 16:00 Resp 18 05/03/21 16:00 BP 113/73 05/03/21 16:00 Pulse Ox 100 05/03/21 08:51 05/03/21 05/03/21 05/03/21 06:59 14:59 22:59 Intake Total 1166.667 / 2264.584 620.583 / 620.583 Balance 1166.667 / 2264.584 620.583 / 620.583 Weight last 48 hrs Weight 80.286 kg Physical Exam Narrative: EXAM NARRATIVE: GA; alert and oriented x 3 HEENT: normal Breasts: engorged Nipples - skin intact Lungs; clear to auscultation Heart: regular rhythm, no murmurs. Abd: Appropriately tender. BS+. Uterine fundus below umbilicus. No Fundal Tenderness. Perineum: normal lochia. Extremities: no edema, no cyanosis, no tenderness. Urinary Catheter Management^: Blake Latex: Cath Placed During This Visit: yes Reason for Continuing Indwelling Catheter: Required Immobilization for Trauma or Surgery or Anesthesia Urinary Catheter Date of Insertion: 05/03/21 Urinary Catheter Time of Insertion: 06:07 A&P Assessment and plan (1) Term delivered: 31-year-old female status post spontaneous vaginal delivery desire permanent sterilization requesting tubal ligation. The patient was counseled regarding all methods of contraception, risk and complications. She elected to continue to proceed with the tubal ligation as planned. partial salpingectomy is associated with lower failure rates than interval tubal occlusions done via laparoscopy. She was counseled regarding the procedure, alternative, risks and complications. Complications of tubal sterilization include problems like but not limited to anesthesia, hemorrhage, organ damage, and mortality. Although pregnancies after a sterilization procedure are rare, there is substantial risk that any post-sterilization could be ectopic. The overall failure rate is on the order of 0.5% in the first year but a study showed that sterilization failures vary by both age at sterilization and the method used. The study also found that the risks of accumulate over time, and that for women aged 18 to 27 years, failure rates can be as high as 5% with bipolar coagulation and the spring clip. The patient was informed of the risks and benefits of the procedure. Risks included but were not limited to bleeding, infection, and injury to internal organs. The patient was counseled on the risk of sterilization failure. The patient was informed that in the event a occurs the risk of ectopic is increased. The patient was counseled that bilateral tubal ligation is intended to be permanent and nonreversible. She was also counseled that there are nonpermanent forms of control available to her. The patient expressed understanding of the risks involved, all questions were answered, and the patient consented to the procedure. Status: Acute Coding Level of Care Code Acute Creasing And Cutting Press Feeder for Chg Fwd Diagnoses Term delivered O80
[2021-05-03 18:29] LABS: Basophils % 0.2 %; Eosinophils # 0.1 10^3/uL (0.0-0.8); Eosinophils % 0.7 %; Hematocrit 31.3 % (37.0-47.0); Hemoglobin 10.2 g/dL (11.5-15.3); Lymphocytes # 1.7 10^3/uL (0.8-4.8); Lymphocytes % 13.1 %; Mean Corpuscular HGB Conc 32.6 g/dL (30.0-36.0); Mean Corpuscular Hemoglobin 24.2 pg (28.0-34.0); Mean Corpuscular Volume 74.2 fl (81-99); Mean Platelet Volume 10.3 fL (7.4-10.4); Monocytes # 0.7 10^3/uL (0.2-0.9); Monocytes % 5.6 %; Neutrophils # 10.32 10^3/uL (1.8-7.7); Neutrophils % 79.9 %; Nucleated Red Blood Cells % 0 %; Platelet Count 354 10^3/cmm (130-400); Red Blood Count 4.22 10^6/uL (4.1-5.3); Red Cell Distribution Width 14.6 % (12.1-15.1); White Blood Count 12.9 10^3/uL (4.0-10.0)
[2021-05-03] MEDS: docusate sodium 100 mg Capsule PO (19:23)
[2021-05-03] MEDS: acetaminophen 325 mg Tablet 650 MG PO (19:23)
[2021-05-03] MEDS: ibuprofen 800 mg tablet PO (21:22)
[2021-05-04] VITALS (14 sets, daily range): BP systolic 99–121; BP diastolic 61–76; PULSE 50–88; RESP 14–22; TEMP 36.1–37.1; O2SAT 97–100
--- NOTE | 2021-05-04 08:46 | PM.PN ---
Subjective Subjective: Interval history: The patient is doing well at this time. She is ambulating, voiding, passing gas and tolerating food by mouth. She will have a bilateral tubal ligation later on this morning. Her bleeding has been very little. Vitals/I&O/Wt Last Vital Signs Temp 97.8 F 05/04/21 04:27 Pulse 68 05/04/21 04:27 Resp 14 05/04/21 04:27 BP 116/71 05/04/21 04:27 Pulse Ox 100 05/03/21 08:51 05/03/21 05/04/21 05/04/21 22:59 06:59 14:59 Intake Total 2504 / 3124.583 500 / 3624.583 Balance 2504 / 3124.583 500 / 3624.583 Weight last 48 hrs Weight 177 lb Physical Exam Narrative: EXAM NARRATIVE: General: Alert and oriented x3 Cardiac: Regular rate and rhythm without murmurs Lungs: Clear to auscultation bilaterally without wheezes, crackles or rhonchi Abdomen: Soft, mild tenderness, fundus is firm and well below the umbilicus. Extremities: Trace edema in the bilateral lower extremities Urinary Catheter Management^: Blake Latex: Cath Placed During This Visit: yes Reason for Continuing Indwelling Catheter: Required Immobilization for Trauma or Surgery or Anesthesia Urinary Catheter Date of Insertion: 05/03/21 Urinary Catheter Time of Insertion: 06:07 Data : 05/03/21 17:50 A&P Assessment and plan (1) Spontaneous vaginal delivery: Status: Acute (2) Term delivered: Status: Acute Additional A&P Information The patient is doing well overall her bleeding is decreasing very well. Plan for bilateral tubal ligation by Dr. Vázquez later on this morning. Routine care otherwise. Plan for discharge home tomorrow as long as everything is going well. Attestations Medical Necessity Statement*: The patient will be here for greater than to have a bilateral tubal ligation today and will be monitored overnight. Plan for discharge home tomorrow as long as things are going well. Coding Level of Care Code Acute Window Shade Cutter And Mounter for Chg Fwd Diagnoses Spontaneous vaginal delivery O80 Term delivered O80
--- NOTE | 2021-05-04 11:40 | P.ANESASSM_ITS ---
Documented by User: Poly Billy CRNA 05/04/21 11:44 Pre-Anesthetic Assessment Pre-Anesthetic Assessment: Height/Weight: Height 1.65 m Weight 80.286 kg Temp Pulse Resp BP Pulse Ox 97.9 F 69 16 102/64 98 05/04/21 10:00 05/04/21 10:00 05/04/21 10:00 05/04/21 10:00 05/04/21 10:00 Preop Diagnosis: Term delivered Proposed Procedure: Operation Date: 05/03/21 16:55 Proposed Procedures p Bilateral Tubal Ligation(Not Applicable) - Vladimir Vázquez MD Operation Date: 05/04/21 12:00 Proposed Procedures p Bilateral Tubal Ligation(Not Applicable) - Vladimir Vázquez MD Was Beta Jose taken within 24 hours: N/A Was Clonidine taken within 24 hours: N/A Social: Social History: No alcohol and No tobacco Exam: Pre-Anes Outpt Exam: alert, oriented x 3 and clear to auscultation bilaterally Airway: Submandibular: WNL Cervical ROM: WNL MP: 1 Dentition: Full History/ROS: No significant history except as noted Pulmonary: Pulmonary: None reported CV/HEM: CV/HEM: None reported : : None reported Hepatic: Hepatic: None reported GI: GI: None reported Metabolic: Metabolic: Thyroid Musc/skel: Musc/skel: None reported Neuropsych: Neuropsych: None reported Anesthetic Plan: ASA status: 1 Anesthesia: General Risk of > 500 ml blood loss (7ml/kg in children): No Meds/Allergies Current Medications: Current Medications Generic Name Dose Route Start Last Admin Trade Name Ernstq PRN Reason Stop Dose Admin Acetaminophen 650 mg 05/02/21 18:14 05/03/21 19:23 Acetaminophen 32 5 Mg Tablet PO 650 mg Q6H PRN Administration Mild pain or temp > 100.4 Docusate Sodium 100 mg 05/03/21 18:00 05/03/21 19:23 Docusate Sodium 100 Mg Capsule PO 100 mg BID JOSE Administration Oxytocin 30 unit in 500 ml s @ 600 mls/hr 05/02/21 18:14 05/04/21 02:06 Pitocin IV Infused .Q50M PRN Titration After delivery of infant Protocol Lactated Ringer's 1,000 mls @ 999 m ls/hr 05/02/21 18:14 05/02/21 22:56 Lactated Ringers IV Infused .Q1H1M PRN Infusion Per L&D Rescitati on Protocol Tranexamic Acid 1, 000 mg/ 110 mls @ 330 mls /hr 05/02/21 18:14 05/03/21 19:30 Sodium Chloride IV Infused Q30M PRN Infusion BLEEDING Dextrose/Lactated Ringer's 1,000 mls @ 125 m ls/hr 05/02/21 18:15 05/04/21 06:33 Dextrose 5%-Lact ated Ringers IV Not Given .Q8H JOSE Lactated Ringer's 1,000 mls @ 999 m ls/hr 05/02/21 22:43 05/03/21 04:21 Lactated Ringers IV Infused .Q1H1M PRN Infusion See label comment s Oxytocin 30 unit in 500 ml s @ 1 mls/hr 05/03/21 07:45 05/03/21 19:31 Pitocin IV Infused .Q24H JOSE Titration Protocol 1 MILLIUNIT/MIN Ibuprofen 800 mg 05/03/21 15:00 05/03/21 21:22 Ibuprofen 800 Mg Tablet PO 800 mg TID JOSE Administration Ondansetron HCl 4 mg 05/02/21 18:14 05/03/21 05:02 Ondansetron 2 Mg /Ml Sdv 2 Ml IVP 4 mg Q4H PRN Administration NAUSEA AND VOMITI NG PFSH Anesthesia PFSH: Medical History (Updated 05/04/21 @ 08:47 by Mohinder Howell MD) History of hemorrhage Hypothyroidism Surgical History History of cholecystectomy Family History Father Chronic kidney disease (CKD) Diabetes Hypertension Grandfather Hypertension Paternal Chronic kidney disease (CKD) Paternal Grandmother Thyroid disease Maternal Denies family history of CAD (coronary artery disease) Clotting disorder Hyperlipidemia Bleeding disorder Cancer Stroke Social History Smoking and tobacco status: never smoked Second hand smoke exposure: No Alcohol intake: never Desire information about alcohol rehabilitation?: No Desire information about substance/drug rehabilitation?: No Female Reproductive History: : 3 Data Anesthesia CBC & Chem 7: 05/03/21 17:50 Other Labs: Laboratory Results - last 48 hr 05/02/21 05/03/21 18:20 17:50 WBC 10.1 H 12.9 H RBC 4.03 L 4.22 Hgb 9.7 L 10.2 L Hct 29.8 L 31.3 L MCV 73.9 L 74.2 L MCH 24.1 L 24.2 L MCHC 32.6 32.6 RDW 14.7 14.6 Plt Count 352 354 MPV 10.1 10.3 Neut % (Auto) 72.9 79.9 Lymph % (Auto) 18.8 13.1 [place] % (Auto) 6.6 5.6 Eos % (Auto) 0.9 0.7 Baso % (Auto) 0.3 0.2 Neut # (Auto) 7.39 10.32 H Lymph # (Auto) 1.9 1.7 [place] # (Auto) 0.7 0.7 Eos # (Auto) 0.1 0.1 Baso # (Auto) 0.0 0.0 Nucleated RBC % (auto) 0 0 Nucleated RBCs # 0.0 0.0 Cardiac Studies: No Data to Display Documented by User: Natan Wright 05/04/21 14:23 PFSH Anesthesia PFSH: Medical History (Updated 05/04/21 @ 08:47 by Mohinder Howell MD) History of hemorrhage Hypothyroidism Surgical History History of cholecystectomy Family History Father Chronic kidney disease (CKD) Diabetes Hypertension Grandfather Hypertension Paternal Chronic kidney disease (CKD) Paternal Grandmother Thyroid disease Maternal Denies family history of CAD (coronary artery disease) Clotting disorder Hyperlipidemia Bleeding disorder Cancer Stroke Social History Smoking and tobacco status: never smoked Second hand smoke exposure: No Alcohol intake: never Desire information about alcohol rehabilitation?: No Desire information about substance/drug rehabilitation?: No Data Anesthesia CBC & Chem 7: 05/03/21 17:50 Cardiac Studies: No Data to Display
--- NOTE | 2021-05-04 12:49 | PM.OP ---
Operative Report Date of procedure: May 04, 2021 Pre-op Diagnosis: Term delivered Pre-op Diagnosis: Desire permanent sterilization Post-op diagnosis: same Procedure Done: bilateral tubal ligation via Voyant fusion Specimens removed/disposition: Left and right fallopian tube segments Surgeon: Vladimir Vázquez MD Anesthesia: General Estimated blood loss (mL): 5 IV fluids (mL): 600 Complications: None Condition: stable Disposition: PACU Procedure: After assuring informed consent. The patient was informed of the risks and benefits of the procedure. Risks included but were not limited to bleeding, infection, and injury to internal organs. The patient was counseled on the risk of sterilization failure. The patient was informed that in the event a occurs the risk of ectopic is increased. The patient was counseled that bilateral tubal ligation is intended to be permanent and nonreversible. She was also counseled that there are nonpermanent forms of control available to her. The patient expressed understanding of the risks involved, all questions were answered, and the patient consented to the procedure. The patient was taken to the operating room and general anesthesia administered. Time-out procedure was performed. A small, transverse, infraumbilical skin incision was made with a scalpel, and the incision was carried down through the underlying fascia until the peritoneum was identified and entered. The left fallopian tube was identified, brought into the incision and grasped with a Kenneth clamp. The tube was then followed out to the fimbria. An avascular midsection of the fallopian tube was grasped with a Kenneth clamp and brought into a knuckle. A Voyant Fine Fusion device was used to grasped the fallopian tube, sealed and transected it. The specimen was sent to pathology. Excellent hemostasis was noted, and the tube was returned to the abdomen. The same procedure was performed on the opposite fallopian tube. The fascia was then closed with O-Vicryl in a single layer. The skin was closed with 3-O Monocryl in a subcuticular fashion. The patient tolerated the procedure well. Needle and sponge counts were correct times 3.
[2021-05-04] MEDS: fentaNYL 50 mcg/mL INJ 2mL IVP (13:00)
--- NOTE | 2021-05-04 14:23 | ANE.PACU2 ---
Inpatient post-anesthesia follow up: Airway intact: Yes Vital signs: Temperature 97.0 F Pulse Rate 67 Respiratory Rate 18 Blood Pressure 116/72 Pulse Oximetry 99 Oxygen Delivery Me thod Room Air Oxygen Flow Rate Fraction of Inspir ed Oxygen Hydration adequate: Yes Nausea and vomiting: No Pain level: 2 Mental status: Baseline
[2021-05-04] MEDS: ketorolac 30 mg/mL INJ IVP (17:37)
[2021-05-04] MEDS: docusate sodium 100 mg Capsule PO (17:37)
--- NOTE | 2021-05-04 18:19 | PC.NURSE ---
05/04/2021 IV STARTS: THIS COMMERCIAL COORDINATOR STARTED IV YESTERDAY AND DOCUMENTED WRONG ARM FOR BOTH IVS UNABLE TO EDIT. BOTH IVS WERE IN RIGHT ARM, #18 JELCO IN RIGHT FOREARM AND #20 IN RIGHT HAND.
[2021-05-05] MEDS: ketorolac 30 mg/mL INJ IVP (01:28)
[2021-05-05 04:48] VITALS: BP 117/78; PULSE 70; RESP 17; TEMP 36.9; O2SAT 99
[2021-05-05 04:49] LABS: Mean Corpuscular Volume 74.7 fl (81-99); Red Cell Distribution Width 14.5 % (12.1-15.1)
[2021-05-05 04:51] LABS: White Blood Count 8.2 10^3/uL (4.0-10.0)
[2021-05-05 04:52] LABS: Hematocrit 30.1 % (37.0-47.0); Hemoglobin 9.4 g/dL (11.5-15.3); Mean Corpuscular HGB Conc 31.2 g/dL (30.0-36.0); Mean Corpuscular Hemoglobin 23.3 pg (28.0-34.0); Mean Platelet Volume 10.4 fL (7.4-10.4); Platelet Count 305 10^3/cmm (130-400); Red Blood Count 4.03 10^6/uL (4.1-5.3)
[2021-05-05] MEDS: measles,mumps,rubella pf Vial (w/diluent) 0.5 ML SUBCUT (05:34)
--- NOTE | 2021-05-05 07:04 | P.DS_ITS ---
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 Liang 31-year-old female G3, P3 admitted to labor and delivery and progressed to a spontaneous vaginal delivery delivered by PCP. She desires permanent sterilization. A bilateral tubal ligation was performed without complications. Overnight observation was uneventful. She is afebrile and hemodynamically stable postoperative day 1. Tolerating diet well. Ambulating without difficulty. Pain under control with medication. Information Peripartum Data: Infant Delivery Method: Vaginal Physical Exam Narrative: EXAM NARRATIVE: GA; alert and oriented x 3 HEENT: normal Breasts: engorged Nipples - skin intact Lungs; clear to auscultation Heart: regular rhythm, no murmurs. Abd: Appropriately tender. BS+. Uterine fundus below umbilicus. No Fundal Tender ness. minimal tenderness, incision clean and dry, no redness, pain or edema. Perineum: normal lochia. Extremities: no edema, no cyanosis, no tenderness. Urinary Catheter Management^: Blake Latex: Cath Placed During This Visit: yes Reason for Continuing Indwelling Catheter: Required Immobilization for Trauma or Surgery or Anesthesia Urinary Catheter Date of Insertion: 05/03/21 Urinary Catheter Time of Insertion: 06:07 Discharge Data Data Completed and Pending: Pending at discharge Category Date Time Status Pathology: Surgic al [PTH] Routine Pth 05/04/21 12:49 Ordered Labs from last 24 hours 05/05/21 04:26 WBC 8.2 RBC 4.03 L Hgb 9.4 L Hct 30.1 L MCV 74.7 L MCH 23.3 L MCHC 31.2 RDW 14.5 Plt Count 305 MPV 10.4 Vitals: Last Vital Signs Temp 98.4 F 05/05/21 04:48 Pulse 70 05/05/21 04:48 Resp 17 05/05/21 04:48 BP 117/78 05/05/21 04:48 Pulse Ox 99 05/05/21 04:48 Discharge Plan Discharge Patient Disposition: Home Condition: Stable Prescriptions: New hydrocodone-acetaminophen 5-325 mg tablet 1 tab PO Q4H PRN (Reason: pain) Qty: 20 RF: 0 acetaminophen 325 mg capsule 325 mg PO Q4H PRN (Reason: fever or postoperative pain) Qty: 60 RF: 0 ibuprofen 800 mg tablet 800 mg PO TID PRN (Reason: pain) Qty: 60 RF: 0 ferrous sulfate [Iron (ferrous sulfate)] 325 mg (65 mg iron) tablet 325 mg PO BID Qty: 60 RF: 0 No Action levothyroxine [Levo-T] 175 mcg tablet 200 mcg PO DAILY RF: 0 DHA 200 mg capsule PO RF: 0 Discharge Orders: Discharge Order (Routine); Ordered 05/05/21 Ordered By: Vladimir Vázquez Referrals: Vladimir Vázquez MD [Physician] - 2 weeks Discharge Diet: Usual diet Patient Instructions: Lanolin (On the skin), and Breast Engorgement (GEN), How to Increase Your Milk Supply (GEN), Bleeding (GEN), Tubal Ligation (GEN), Breast Care for the Mother (GEN), OB Discharge Report, OB Food/Drug Interaction Guide, Opioid Safety, OB Home Care, OB Vaginal Deliveries Activity Restrictions/Additional Instructions: 1. Please call [facility] on next working day to make your post-operative appointment in 2 weeks. 2. Please stay home until you come back to the clinic on first post-operative check up. 3. Please follow instructions on your medications CAREFULLY. 4. If you have abdominal incision, do not cover it unless dressing is necessary because of drainage. OK to shower, but avoid bath. Leave steri-strips until they fall off. If they are still on one week after surgery, you may remove them. 5. If you had vaginal surgery or vaginal repair, Dr. Vázquez may instruct you to take SITZ bath. 6. Yellow, blood tinged odorous vaginal discharge is usually normal after hysterectomy or vaginal surgeries. 7. No sexual intercourse, tampons, or douches until you are completely released from the post-operative care. 8. Avoid constipation by eating right and maybe using some Metamucil or Milk of Magnesia. 9. All prescription refills are given during the working hours. Please do no wait till it runs out. Call the clinic at [phone] before your medication runs out. The clinic will get in touch with your doctor to prescribe medications if necessary. 10. Please remain within 40 mile radius from our hospital because emergencies do happen now and then during the post-operative period. 11. If you have stairs at home, take one step at a time slowly and minimize the number of trips. It helps to stay in one floor for the next few days. No lifting except what you can lift by one hand until you are released from the post-operative care. 12. Driving is discouraged until you are well healed. It may be 3-4 weeks before you feel strong enough to drive. You should be able to turn and look through the rear window without pain and you should be able to push the brake pedal very hard without pain before you drive. No fast rules, but SAFETY should be your primary concern. DO NOT drive if you are on sedating medications such as narcotics. 13. Call the clinic (during working hours) to make urgent appointment or go to the Emergency room, if any of the following occurs: i. Vaginal bleeding becomes heavy, more than a period. ii. Incision becomes red and sore, or drains pus. iii. Your temperature is over 100.4 or you have chill. iv. IV site becomes red and swollen (a little ``knot?? is usually OK) v. Persistent nausea and vomiting vi. Persistent constipation or diarrhea vii. Rash or allergic reaction to medications. 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
[2021-05-05 07:30] VITALS: BP 110/69; PULSE 69; RESP 18; TEMP 36.9
--- NOTE | 2021-05-05 08:05 | PM.DCS ---
Discharge Providers Date of Admission: 05/02/21 18:02 Date of Discharge: May 05, 2021 Attending Provider at Admission: Mohinder Howell MD Attending Provider at Discharge: Mohinder Howell MD Primary Care Provider: Srikanth Brice DO Diagnoses at Discharge Discharge Diagnosis (1) Spontaneous vaginal delivery: Status: Acute (2) Term delivered: Status: Acute (3) Status post tubal ligation: Status: Acute Permanent problem details: Postoperative day 1 Reason for Visit Reason for Visit: Induction of Labor Hospital Course Hospital Course Mrs. Liang 31-year-old female G3, P3 admitted to labor and delivery and progressed to a spontaneous vaginal delivery delivered by PCP. She desires permanent sterilization. A bilateral tubal ligation was performed without complications. Overnight observation was uneventful. She is afebrile and hemodynamically stable postoperative day 1. Tolerating diet well. Ambulating without difficulty. Pain under control with medication. Physical Exam Urinary Catheter Management^: Blake Latex: Cath Placed During This Visit: yes Reason for Continuing Indwelling Catheter: Required Immobilization for Trauma or Surgery or Anesthesia Urinary Catheter Date of Insertion: 05/03/21 Urinary Catheter Time of Insertion: 06:07 Discharge Data Data Completed and Pending: Pending at discharge Category Date Time Status Pathology: Surgic al [PTH] Routine Pth 05/04/21 12:49 Received Labs from last 24 hours 05/05/21 04:26 WBC 8.2 RBC 4.03 L Hgb 9.4 L Hct 30.1 L MCV 74.7 L MCH 23.3 L MCHC 31.2 RDW 14.5 Plt Count 305 MPV 10.4 Vitals: Last Vital Signs Temp 98.4 F 05/05/21 04:48 Pulse 70 05/05/21 04:48 Resp 17 05/05/21 04:48 BP 117/78 05/05/21 04:48 Pulse Ox 99 05/05/21 04:48 Discharge Plan Discharge Patient Disposition: Home Condition: Good Prescriptions: New hydrocodone-acetaminophen 5-325 mg tablet 1 tab PO Q4H PRN (Reason: pain) Qty: 20 RF: 0 acetaminophen 325 mg capsule 325 mg PO Q4H PRN (Reason: fever or postoperative pain) Qty: 60 RF: 0 ibuprofen 800 mg tablet 800 mg PO TID PRN (Reason: pain) Qty: 60 RF: 0 ferrous sulfate [Iron (ferrous sulfate)] 325 mg (65 mg iron) tablet 325 mg PO BID Qty: 60 RF: 0 Continued levothyroxine [Levo-T] 175 mcg tablet 200 mcg PO DAILY RF: 0 DHA 200 mg capsule PO RF: 0 Discharge Orders: Discharge Order (Routine); Ordered 05/05/21 Ordered By: Vladimir Vázquez Referrals: Vladimir Vázquez MD [Physician] - 2 weeks Mohinder Howell MD [Physician] - 6 Weeks Discharge Diet: Usual diet Discharge Activity: Limit activity as instructed Patient Instructions: Lanolin (On the skin), and Breast Engorgement (GEN), How to Increase Your Milk Supply (GEN), Bleeding (GEN), Tubal Ligation (GEN), Breast Care for the Mother (GEN), OB Discharge Report, OB Food/Drug Interaction Guide, Opioid Safety, OB Home Care, OB Vaginal Deliveries Activity Restrictions/Additional Instructions: 1. Please call [facility] clinic on next working day to make your post-operative appointment in 2 weeks. 2. Please stay home until you come back to the clinic on first post-operative check up. 3. Please follow instructions on your medications CAREFULLY. 4. If you have abdominal incision, do not cover it unless dressing is necessary because of drainage. OK to shower, but avoid bath. Leave steri-strips until they fall off. If they are still on one week after surgery, you may remove them. 5. If you had vaginal surgery or vaginal repair, Dr. Vázquez may instruct you to take SITZ bath. 6. Yellow, blood tinged odorous vaginal discharge is usually normal after hysterectomy or vaginal surgeries. 7. No sexual intercourse, tampons, or douches until you are completely released from the post-operative care. 8. Avoid constipation by eating right and maybe using some Metamucil or Milk of Magnesia. 9. All prescription refills are given during the working hours. Please do no wait till it runs out. Call the clinic at [phone] before your medication runs out. The clinic will get in touch with your doctor to prescribe medications if necessary. 10. Please remain within 40 mile radius from our hospital because emergencies do happen now and then during the post-operative period. 11. If you have stairs at home, take one step at a time slowly and minimize the number of trips. It helps to stay in one floor for the next few days. No lifting except what you can lift by one hand until you are released from the post-operative care. 12. Driving is discouraged until you are well healed. It may be 3-4 weeks before you feel strong enough to drive. You should be able to turn and look through the rear window without pain and you should be able to push the brake pedal very hard without pain before you drive. No fast rules, but SAFETY should be your primary concern. DO NOT drive if you are on sedating medications such as narcotics. 13. Call the clinic (during working hours) to make urgent appointment or go to the Emergency room, if any of the following occurs: i. Vaginal bleeding becomes heavy, more than a period. ii. Incision becomes red and sore, or drains pus. iii. Your temperature is over 100.4 or you have chill. iv. IV site becomes red and swollen (a little ``knot?? is usually OK) v. Persistent nausea and vomiting vi. Persistent constipation or diarrhea vii. Rash or allergic reaction to medications. Coding Level of Care Code Acute Chg FW DC note Diagnoses Spontaneous vaginal delivery O80 Term delivered O80 Status post tubal ligation Z98.51
[2021-05-05 08:55] VITALS: BP 110/69; PULSE 69; RESP 18; TEMP 36.9
== END 2021-05-05 08:55 | disposition home or self-care (01) | DRG 798 ==
LOC: OPOB 18:02 → OBGYN 18:02
PROVIDERS: Obstetrics & Gynecology; Admitting Provider Family Medicine; PCP Family Medicine; Visit Provider Family Medicine
PROC: 0U574ZZ Destruction of Bilateral Fallopian Tubes, Percutaneous Endoscopic Approach (ICD-10-PCS; CPT 58605; principal; 2021-05-04 12:00)
DX: O99.284 Endocrine, nutritional and metabolic diseases complicating childbirth (principal); Z37.0 Single live birth; E03.9 Hypothyroidism, unspecified; O99.02 Anemia complicating childbirth; D64.9 Anemia, unspecified; Z3A.39 39 weeks gestation of pregnancy; Z14.1 Cystic fibrosis carrier
CPT/HCPCS: 36415; 51702; 59025; 59409; 85025; 85027; 88302; 90707; 96372; 96374; 99211; J1100; J1885; J2405; J2704; J2710; J3010; J3490

== ENCOUNTER → 2022-10-12 13:06 | Outpatient (BNVA) | payer MEDICAID, SELFPAY | PROVIDERS: PCP Family Medicine; Visit Provider Family Medicine | DX: E03.9 Hypothyroidism, unspecified (principal); G89.18 Other acute postprocedural pain | CPT/HCPCS: 84443 ==

== ENCOUNTER → 2023-03-17 11:15 | Outpatient (BNVA) | payer MEDICAID, SELFPAY | PROVIDERS: PCP Family Medicine; Visit Provider Family Medicine | DX: E03.9 Hypothyroidism, unspecified (principal) | CPT/HCPCS: 84443 ==

== ENCOUNTER 2023-06-26 20:17 | Emergency (ER) | payer MEDICAID, SELFPAY ==
[2023-06-26 20:24] VITALS: BP 128/86; PULSE 65; RESP 16; TEMP 36.6; O2SAT 97; BMI 29.0
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
[2023-06-26] MEDS: ibuprofen 800 mg tablet PO (21:15)
== END 2023-06-26 21:53 | disposition home or self-care (01) ==
PROVIDERS: Emergency Provider Emergency Medicine; PCP Family Medicine
DX: S13.4XXA Sprain of ligaments of cervical spine, initial encounter (principal); V89.2XXA Person injured in unspecified motor-vehicle accident, traffic, initial encounter
CPT/HCPCS: 71045; 72040; 73030; 99284

== ENCOUNTER → 2023-07-04 11:20 | Outpatient (BNVA) | payer MEDICAID, SELFPAY | PROVIDERS: PCP Family Medicine; Visit Provider Family Medicine | DX: E03.9 Hypothyroidism, unspecified (principal) | CPT/HCPCS: 84443 ==

== ENCOUNTER → 2023-12-26 08:26 | Outpatient (BNVA) | payer MEDICAID, SELFPAY | PROVIDERS: PCP Family Medicine; Visit Provider Family Medicine | DX: E03.9 Hypothyroidism, unspecified (principal); D64.9 Anemia, unspecified; E55.9 Vitamin D deficiency, unspecified | CPT/HCPCS: 80053; 82607; 82652; 84443; 85025 ==

== ENCOUNTER → 2024-01-14 11:29 | Outpatient (BNVA) | payer MEDICAID, SELFPAY | PROVIDERS: PCP Family Medicine; Visit Provider Emergency Medicine | DX: J02.9 Acute pharyngitis, unspecified (principal) | CPT/HCPCS: 87071; 87880 ==

== ENCOUNTER 2024-05-03 08:14 | Emergency (ER) | payer MEDICAID, SELFPAY ==
[2024-05-03 08:24] VITALS: BP 130/72; PULSE 93; RESP 17; TEMP 36.7; O2SAT 98; BMI 26.1
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
--- NOTE | 2024-05-03 09:18 | PC.PHAR ---
removed lots of short term meds from patient profile
[2024-05-03] MEDS: naproxen 500 mg Tablet PO (09:25)
[2024-05-03] MEDS: methocarbamol 750 mg Tablet 1500 MG PO (09:25)
[2024-05-03 09:36] VITALS: BP 118/88; PULSE 82; O2SAT 99
== END 2024-05-03 09:37 | disposition home or self-care (01) ==
PROVIDERS: Emergency Provider Emergency Medicine; PCP Family Medicine
DX: S16.1XXA Strain of muscle, fascia and tendon at neck level, initial encounter (principal); V89.2XXA Person injured in unspecified motor-vehicle accident, traffic, initial encounter
CPT/HCPCS: 72040; 73030; 99284

== ENCOUNTER → 2024-06-11 08:40 | Outpatient (BNVA) | payer MEDICAID, SELFPAY | PROVIDERS: PCP Family Medicine; Visit Provider Family Medicine | DX: Z00.00 Encounter for general adult medical examination without abnormal findings (principal); E03.9 Hypothyroidism, unspecified | CPT/HCPCS: 84443; 87624 ==

== ENCOUNTER → 2024-08-27 07:42 | Outpatient (BNVA) | payer MEDICAID, SELFPAY | PROVIDERS: PCP Family Medicine; Visit Provider Family Medicine | DX: E03.9 Hypothyroidism, unspecified (principal); D64.9 Anemia, unspecified; Z00.00 Encounter for general adult medical examination without abnormal findings | CPT/HCPCS: 80053; 80061; 83036; 84443; 85025 ==

== ENCOUNTER 2024-10-11 08:30 | Oncology outpatient (recurring) (ONCR) | payer MEDICAID, SELFPAY ==
[2024-09-16 14:07] LABS: Basophils # 0.1 10^3/uL (0.0-0.1); Basophils % 0.7 %; Eosinophils # 0.2 10^3/uL (0.0-0.8); Eosinophils % 2.9 %; Hematocrit 33.1 % (36-47); Lymphocytes # 2.4 10^3/uL (0.8-4.8); Mean Corpuscular HGB Conc 30.2 g/dL (30-55); Mean Corpuscular Hemoglobin 22.4 pg (27-33); Mean Corpuscular Volume 74.2 fl (85-98); Mean Platelet Volume 9.5 fL (7.4-10.4); Monocytes # 0.5 10^3/uL (0.2-0.9); Monocytes % 6.1 %; Neutrophils # 4.47 10^3/uL (1.8-7.7); Neutrophils % 58.9 %; Nucleated Red Blood Cells % 0 %; Platelet Count 438 10^3/cmm (157-399); Red Blood Count 4.46 10^6/uL (3.85-5.65); Red Cell Distribution Width 15.8 % (12.1-15.1); White Blood Count 7.58 10^3/uL (3.29-11.43)
[2024-09-16 14:44] LABS: Folate Level 10.3 ng/mL (4.8-37.3)
[2024-09-16 14:48] LABS: Alanine Aminotransferase 14 U/L (0-33); Albumin Level 4.5 g/dL (3.5-5.2); Alkaline Phosphatase 77 U/L (35-105); Aspartate Amino Transferase 20 U/L (0-32); Blood Urea Nitrogen 14 mg/dL (6-20); Calcium 9.4 mg/dL (8.5-10.5); Carbon Dioxide 26 mmol/L (22-29); Chloride 101 mmol/L (98-107); Ferritin 8 ng/mL (15-150); Glucose 90 mg/dL (65-115); Iron 23 ug/dL (37-145); Osmolality Calculated 282 mOsm/kg (285-295); Percent Saturation 6.3 % (20-50); Sodium 136 mmol/L (136-145); Total Bilirubin 0.2 mg/dL (0.15-1.2); Total Iron Binding Capacity 362 mcg/dl; Total Protein 7.5 g/dL (6.6-8.7); Unsaturated Iron Binding 339 ug/dL (112-347); Vitamin B12 460 pg/mL (232-1245)
[2024-10-01] MEDS: iron sucrose 200 MG in sodium chloride 0.9% (100 ml) 100 ML IV (15:11)
[2024-10-01 16:02] VITALS: BP 113/71; PULSE 68; RESP 16; TEMP 36.8; O2SAT 99
[2024-10-03] MEDS: iron sucrose 200 MG in sodium chloride 0.9% (100 ml) 100 ML IV (14:11)
[2024-10-03 14:50] VITALS: BP 107/70; PULSE 76; RESP 18; TEMP 37.2; O2SAT 99
[2024-10-07] MEDS: iron sucrose 200 MG in sodium chloride 0.9% (100 ml) 100 ML IV (14:20)
[2024-10-07 15:04] VITALS: BP 118/78; PULSE 78; RESP 18; TEMP 37; O2SAT 100
[2024-10-07 15:11] VITALS: BP 118/78; PULSE 78; RESP 18; TEMP 37; O2SAT 100
[2024-10-09] MEDS: iron sucrose 200 MG in sodium chloride 0.9% (100 ml) 100 ML IV (14:39)
[2024-10-09 15:21] VITALS: BP 103/75; PULSE 85; RESP 16; TEMP 36.6; O2SAT 95
[2024-10-11 08:16] VITALS: BP 103/68; PULSE 82; RESP 18; TEMP 36.3; O2SAT 98
[2024-10-11] MEDS: iron sucrose 200 MG in sodium chloride 0.9% (100 ml) 100 ML IV (08:22)
[2024-10-11 08:58] VITALS: BP 102/65; PULSE 69; RESP 18; TEMP 36.8; O2SAT 98
== END 2024-10-14 23:59 | disposition home or self-care (01) ==
PROVIDERS: Internal Medicine Medical Oncology; PCP Family Medicine; Visit Provider Internal Medicine
DX: Z53.9 Procedure and treatment not carried out, unspecified reason; D50.9 Iron deficiency anemia, unspecified; Z79.899 Other long term (current) drug therapy
CPT/HCPCS: 36415; 80053; 82607; 82728; 82746; 83540; 83550; 85025; 96365; J1756

== ENCOUNTER → 2025-01-02 08:50 | Outpatient (BNVA) | payer MEDICAID, SELFPAY | PROVIDERS: PCP Family Medicine; Visit Provider Family Medicine | DX: E03.9 Hypothyroidism, unspecified (principal); D64.9 Anemia, unspecified; D50.9 Iron deficiency anemia, unspecified; F39 Unspecified mood [affective] disorder | CPT/HCPCS: 82607; 83540; 84443; 85025 ==

== ENCOUNTER → 2025-03-12 07:46 | Outpatient (BNVA) | payer MEDICAID, SELFPAY | PROVIDERS: PCP Family Medicine; Visit Provider Nurse Practitioner | DX: M25.532 Pain in left wrist (principal) | CPT/HCPCS: 73110 ==

== ENCOUNTER → 2025-03-14 11:19 | Outpatient (BNVA) | payer MEDICAID, SELFPAY | PROVIDERS: PCP Family Medicine; Visit Provider Nurse Practitioner | DX: S60.212A Contusion of left wrist, initial encounter (principal); S69.92XA Unspecified injury of left wrist, hand and finger(s), initial encounter; W19.XXXA Unspecified fall, initial encounter | CPT/HCPCS: 73110; 73130 ==

== ENCOUNTER 2025-03-19 16:39 | Outpatient (CLI) | payer MEDICAID, SELFPAY ==
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
== END 2025-03-19 16:40 | disposition home or self-care (01) ==
LOC: RAD 16:39
PROVIDERS: PCP Family Medicine; Visit Provider Nurse Practitioner
DX: S69.92XA Unspecified injury of left wrist, hand and finger(s), initial encounter (principal); X58.XXXA Exposure to other specified factors, initial encounter
CPT/HCPCS: 73218

== ENCOUNTER 2025-03-21 13:16 | Outpatient (CLI) | payer MEDICAID, SELFPAY | END 2025-03-21 13:17 | disposition home or self-care (01) | LOC: SOT 13:17 | PROVIDERS: PCP Family Medicine; Visit Provider Nurse Practitioner | DX: Z46.89 Encounter for fitting and adjustment of other specified devices (principal); S63.592A Other specified sprain of left wrist, initial encounter; S62.145A Nondisplaced fracture of body of hamate [unciform] bone, left wrist, initial encounter for closed fracture; S60.212A Contusion of left wrist, initial encounter; W19.XXXA Unspecified fall, initial encounter | CPT/HCPCS: L3982 ==

== ENCOUNTER → 2025-06-24 08:59 | Outpatient (BNVA) | payer MEDICAID, SELFPAY | PROVIDERS: PCP Family Medicine; Visit Provider Family Medicine | DX: F39 Unspecified mood [affective] disorder (principal); E03.9 Hypothyroidism, unspecified; D64.9 Anemia, unspecified | CPT/HCPCS: 80053; 84443; 85025 ==